=== PATIENT | female | born 1970 ===

== ENCOUNTER 2023-08-19 16:57 | Inpatient (IN) | payer OTHER ==
[~2023-08-19] VITALS: Ht 154.9 cm; Wt 133.5 kg
--- NOTE | 2023-08-19 20:00 | NUR ---
ADMISSION PT IS A DIRECT ADMIT FROM [facility] FOR ENT CONSULTATION & OBS FOR FACIAL/LIP ABCESS. PT ARRIVED VIA EMS TRANSPORT. PT IS AWAKE,A&O X4, SBA W/FWW FROM GURNEY TO BED, VSS, LUNG SOUNDS CLEAR, RA, DENIES SOB, REDNESS/SWELLING TO R.SIDE OF PT'S FACE, WARM TO TOUCH & PAINFUL.PT ORIENTED TO ROOM/CALL LIGHT, NO IGNITION SOURCES IDENTIFIED. IV ACCESS L.ARM, PATENT. NOTIFIED OF PT'S ARRIVAL, ORDERS PLACED, MD TO BEDSIDE TO SPEAK WITH PT SOON AVAILABLE, CALL LIGHT IN REACH, BD IN LOW POSITION, PT INSTRUCTED TO CALL FOR ASSISTANCE PRIOR TO GETTING OOB FOR SAFETY,
[2023-08-19 21:27] VITALS: BP 136/84
[2023-08-19 22:29] LABS: BASOPHILS ABSOLUTE AUTO 0.04 K/mm3 (0.00-0.23); BASOPHILS PERCENT AUTO 0 % (0-2); EOSINOPHILS ABSOLUTE AUTO 0.16 K/mm3 (0.00-0.68); EOSINOPHILS PERCENT AUTO 2 % (0-6); Hematocrit 41.3 % (33.0-51.0); Hemoglobin 13.6 g/dL (11.5-16.0); IMMATURE GRAN ABSOLUTE AUTO 0.04 K/mm3 (0.00-0.10); IMMATURE GRAN PERCENT AUTO 0 % (0-1); LYMPHOCYTES PERCENT AUTO 22 % (21-46); MONOCYTES PERCENT AUTO 8 % (4-13); Mean Corpuscular HGB 29.1 pg (26.0-34.0); Mean Corpuscular HGB Conc 32.9 g/dL (31.5-36.5); Mean Corpuscular Volume 88 fL (80-100); Mean Platelet Volume 9.8 fL (9.1-12.4); NEUTROPHILS ABSOLUTE AUTO 7.06 K/mm3 (1.96-9.15); NEUTROPHILS PERCENT AUTO 68 % (41-73); Platelet Count 273 K/mm3 (150-400); RDW Coefficient Variation 14.4 % (11.7-14.2); RDW Standard Deviation 46.1 fL (35.1-46.3); Red Blood Cell Count 4.68 M/mm3 (3.80-5.20)
[2023-08-19 22:47] LABS: Albumin, Blood 2.9 g/dL (3.4-5.0); Albumin/Globulin Ratio 0.6 (0.8-1.8); Bilirubin, Total 0.5 mg/dL (0.1-1.0); Bun/Creatinine Ratio 22.3 (12.0-20.0); Calcium, Blood 8.4 mg/dL (8.5-10.1); Creatinine, Blood 0.63 mg/dL (0.40-1.00); Globulin, Blood 4.6 g/dL (2.2-4.0); Magnesium, Blood 1.9 mg/dL (1.6-2.4); Potassium, Blood 3.5 mmol/L (3.5-5.5); Total Protein, Blood 7.5 g/dL (6.4-8.2)
[2023-08-20] MEDS ORDERED: Amitriptyline H10 MG PO (04:08)
[2023-08-20] MEDS ORDERED: BACL20 PO (04:10)
[2023-08-20] MEDS ORDERED: ELIQUIS5 M2 PO (04:11)
[2023-08-20] MEDS ORDERED: FERSU300 PO (04:11)
[2023-08-20] MEDS ORDERED: Flonase 0.05% N16 GM (04:12)
[2023-08-20] MEDS ORDERED: FURO20 PO (04:13)
[2023-08-20] MEDS ORDERED: GABA300 PO (04:13)
[2023-08-20] MEDS ORDERED: Norco 7.5-3251 EACH PO (04:15)
[2023-08-20] MEDS ORDERED: LACT10SY PO (04:16)
[2023-08-20] MEDS ORDERED: OMEP20ER PO (04:17)
[2023-08-20] MEDS ORDERED: LIDO700A20 TOP (04:17)
[2023-08-20] MEDS ORDERED: BUPR150ER PO (04:18)
[2023-08-20] MEDS ORDERED: CLON1 PO (04:19)
[2023-08-20] MEDS ORDERED: METF500 PO (04:20)
[2023-08-20] MEDS ORDERED: OXYB5 PO (04:20)
[2023-08-20] MEDS ORDERED: AMOCLA875 PO (04:27)
[2023-08-20 04:35] VITALS: BP 123/76
[2023-08-20 04:49] LABS: BASOPHILS ABSOLUTE AUTO 0.03 K/mm3 (0.00-0.23); BASOPHILS PERCENT AUTO 0 % (0-2); EOSINOPHILS ABSOLUTE AUTO 0.19 K/mm3 (0.00-0.68); EOSINOPHILS PERCENT AUTO 2 % (0-6); Hematocrit 40.9 % (33.0-51.0); Hemoglobin 13.7 g/dL (11.5-16.0); IMMATURE GRAN ABSOLUTE AUTO 0.03 K/mm3 (0.00-0.10); IMMATURE GRAN PERCENT AUTO 0 % (0-1); LYMPHOCYTES ABSOLUTE AUTO 2.47 K/mm3 (0.84-5.20); LYMPHOCYTES PERCENT AUTO 32 % (21-46); MONOCYTES PERCENT AUTO 8 % (4-13); Mean Corpuscular HGB 29.5 pg (26.0-34.0); Mean Corpuscular HGB Conc 33.5 g/dL (31.5-36.5); Mean Corpuscular Volume 88 fL (80-100); Mean Platelet Volume 9.9 fL (9.1-12.4); NEUTROPHILS PERCENT AUTO 58 % (41-73); Platelet Count 248 K/mm3 (150-400); RDW Coefficient Variation 14.5 % (11.7-14.2); RDW Standard Deviation 46.5 fL (35.1-46.3); Red Blood Cell Count 4.64 M/mm3 (3.80-5.20); White Blood Cell Count 7.82 K/mm3 (4.00-11.30)
[2023-08-20 05:04] LABS: Prothrombin Time Results 10.5 Sec (9.7-11.5)
[2023-08-20 05:08] LABS: Magnesium, Blood 1.8 mg/dL (1.6-2.4)
[2023-08-20 05:09] LABS: Albumin, Blood 2.7 g/dL (3.4-5.0); Albumin/Globulin Ratio 0.6 (0.8-1.8); Bilirubin, Total 0.5 mg/dL (0.1-1.0); Calcium, Blood 8.2 mg/dL (8.5-10.1); Creatinine, Blood 0.6 mg/dL (0.40-1.00); Globulin, Blood 4.6 g/dL (2.2-4.0); Potassium, Blood 3.3 mmol/L (3.5-5.5); Total Protein, Blood 7.3 g/dL (6.4-8.2)
--- NOTE | 2023-08-20 06:45 | NUR ---
SHIFT SUMMARY NO CHANGES SINCE ADMISSION, PAIN MEDICATED X1, ABX/NS ADMINISTERED PER EMAR, NPO SINCE MIDNIGHT, VSS, ON RA, SBA W/FWW, ICE PACK GIVEN FOR FACIAL SWELLING, ENT CONSULT WAS CALLED, REPORT GIVEN TO BULL RN, PT RESTING QUIETLY THIS AM, CALL LIGHT IN REACH
[2023-08-20 07:07] VITALS: BP 123/79
--- NOTE | 2023-08-20 14:27 | NUR ---
DR. GAR ATTEMPTED BEDSIDE DRAINAGE OF ABCESS. PT TOLERATED WELL PAINFUL AT TIMES BUT MEDICATED WITH FENTANYL PER DR. GAR. PT CURRENTLY RESTING IN BED REPORTS TOLERABLE AT THIS TIME. SMALL INCISION NEAR R NARE AND UNDER UPPER LIP INSIDE MOUTH. PRESSURE APPLIED, BLEEDING STOPPED AT THIS TIME. TRIPLE ANTIBIOTIC APPLIED TO OUTER INCISION PER DR. GAR. PT GIVEN LIDOCAINE PRIOR TO PROCEDURE, CURRENTLY RIGHT SIDE STILL NUMB. PT DENIES NEEDS AT THIS TIME. CALL LIGHT IN REACH.
[2023-08-20 14:52] VITALS: BP 157/84
--- NOTE | 2023-08-20 17:59 | NUR ---
SHIFT SUMMARY NO CHANGES SINCE PREVIOUS NOTE. PT REPORTS FEELING BETTER OVERALL. SHE WAS ABLE TO BLOW HER NOSE AND FELT LIKE SHE CLEARED HER NASAL PASSAGE. AMBULATING WELL IN ROOM WITH SBA. PLAN IS TO CONTINUE IV ABX FOR THE NEXT FEW DAYS AND MONITOR S/S OF INFECTION AROUND FACE. PT TOLERATING DIET WELL.
[2023-08-20 19:47] VITALS: BP 142/89
[2023-08-20] MEDS ORDERED: DULO60 PO (22:06)
[2023-08-20] MEDS ORDERED: Celexa20 MG PO (22:10)
[2023-08-21 04:42] VITALS: BP 130/84
[2023-08-21 04:51] LABS: BASOPHILS ABSOLUTE AUTO 0.03 K/mm3 (0.00-0.23); BASOPHILS PERCENT AUTO 1 % (0-2); EOSINOPHILS PERCENT AUTO 4 % (0-6); Hematocrit 42.5 % (33.0-51.0); Hemoglobin 13.7 g/dL (11.5-16.0); IMMATURE GRAN ABSOLUTE AUTO 0.04 K/mm3 (0.00-0.10); IMMATURE GRAN PERCENT AUTO 1 % (0-1); LYMPHOCYTES ABSOLUTE AUTO 2.07 K/mm3 (0.84-5.20); LYMPHOCYTES PERCENT AUTO 39 % (21-46); MONOCYTES PERCENT AUTO 10 % (4-13); Mean Corpuscular HGB 28.8 pg (26.0-34.0); Mean Corpuscular HGB Conc 32.2 g/dL (31.5-36.5); Mean Corpuscular Volume 89 fL (80-100); Mean Platelet Volume 9.7 fL (9.1-12.4); NEUTROPHILS ABSOLUTE AUTO 2.45 K/mm3 (1.96-9.15); NEUTROPHILS PERCENT AUTO 46 % (41-73); Platelet Count 245 K/mm3 (150-400); RDW Coefficient Variation 14.1 % (11.7-14.2); RDW Standard Deviation 46.5 fL (35.1-46.3); Red Blood Cell Count 4.76 M/mm3 (3.80-5.20); White Blood Cell Count 5.29 K/mm3 (4.00-11.30)
[2023-08-21 05:20] LABS: Bun/Creatinine Ratio 32.4 (12.0-20.0); Calcium, Blood 8.5 mg/dL (8.5-10.1); Creatinine, Blood 0.74 mg/dL (0.40-1.00); Potassium, Blood 3.5 mmol/L (3.5-5.5)
[2023-08-21 07:11] VITALS: BP 149/85
[2023-08-21 10:46] LABS: Vancomycin, Trough 25.4 ug/mL (5.0-10.0)
[2023-08-21 14:42] VITALS: BP 136/82
--- NOTE | 2023-08-21 17:16 | NUR ---
SHIFT SUMMARY PAIN MANAGED WITH TYLENOL AND TORADOL THIS SHIFT. PT HAS BEEN INDEPENDENT IN HER ROOM WITH HER WALKER. PT TOLERATING PO. SHE IS GETTING ROUTINE IV ABX.
--- NOTE | 2023-08-21 18:45 | NUR ---
DR. PINON NOTIFIED THAT PT HAD HX OF PE IN 2020. ELIQUIS RESTARTED PER DR. PINON.
[2023-08-21 19:29] VITALS: BP 107/85
--- NOTE | 2023-08-21 20:02 | NUR ---
BEDSIDE REPORT GIVEN. PT ALERT, ORIENTED AN PARTICIPATED WITH REPORT. DISCUSSED INCREASED SWELLING TO RIGHT NOSTRIL AND UPPER LIP AREA WITH MEKA PATEL RN. REDNESS TO CHEEK APPEARS TO BE RECEDING. DR. PINON NOTIFIED OF CHANGES TO SWELLING AND REDNESS.
[2023-08-22 03:20] VITALS: BP 134/80
[2023-08-22 07:20] VITALS: BP 138/99
--- NOTE | 2023-08-22 07:33 | NUR ---
SUMMARY A&O X4, VSS, ON RA, PRODUCTIVE COUGH, NO ACUTE CHANGES NOTED, POWERGLIDE PLACED TO FRANSICO BY JESU DE LA TORRE, PAIN MANAGED PER EMAR. REPORT GIVEN TO PAWEL DE LA TORRE, RESTING QUIETLY, CALL LIGHT IN REACH
[2023-08-22 14:58] VITALS: BP 129/68
[2023-08-22 17:38] LABS: Vancomycin, Trough 18.1 ug/mL (5.0-10.0)
--- NOTE | 2023-08-22 18:17 | NUR ---
SHIFT SUMMARY PT HAS HAD A GOOD SHIFT. REPORTS FEELING BETTER & WAS VERY HAPPY TO SEE DR GAR THIS AFTERNOON. IS FEELING COMFORTABLE w/ THE IDEA OF GOING HOME TOMORROW. DIDN'T TAKE ANY PRN MEDS THIS SHIFT.
[2023-08-22 19:13] VITALS: BP 128/67
[2023-08-23 02:35] VITALS: BP 125/75
--- NOTE | 2023-08-23 05:21 | NUR ---
SHIFT SUMMARY PT HAS RESTED T/O THE NIGHT, PT STILL REPORTING SOME TIGHTNESS AND PAIN ON RIGHT SIDE OF FACE BUT REPORTS THAT IT HAS IMPROVED. MEDICATED FOR PAIN WITH TYLENOL WITH AFFECT. VITALS ARE STABLE. PT HAS BEEN INDEPENDENT IN THE ROOM. APPETITE IS GOOD. PLAN OF CARE REMAINS UNCHANGED.
[2023-08-23 07:21] VITALS: BP 159/89
[2023-08-23] MEDS ORDERED: MUPIROCIN1 G1 TOP (11:56)
[2023-08-23] MEDS ORDERED: SULTRIDS PO (11:56)
[2023-08-23 14:47] VITALS: BP 137/91
--- NOTE | 2023-08-23 16:43 | NUR ---
DISCHARGE ARRANGED TRANSPORTATION ARRIVED EARLY. PT EXCITED TO GO HOME. MEDS FAXED TO PREFERRED PHARMACY THIS AM. UNDERSTANDS IMPORTANCE OF TAKING THEM & F/U. ESCORTED OUT VIA WC w/ BELONGINGS.
== END 2023-08-23 16:40 | disposition home or self-care (01) | DRG 158 ==
LOC: MEDS 16:57 → SURS 20:10
PROVIDERS: Family Medicine; ADMIT Student in an Organized Health Care Education/Training Program
PROC: 0H91XZZ Drainage of Face Skin, External Approach (ICD-10-PCS; principal; 2023-08-20)
DX: K13.0 Diseases of lips (principal); L03.211 Cellulitis of face; E11.9 Type 2 diabetes mellitus without complications; I10 Essential (primary) hypertension; E66.01 Morbid (severe) obesity due to excess calories; E87.6 Hypokalemia; B95.62 Methicillin resistant Staphylococcus aureus infection as the cause of diseases classified elsewhere; F17.290 Nicotine dependence, other tobacco product, uncomplicated; Z86.711 Personal history of pulmonary embolism; Z79.01 Long term (current) use of anticoagulants; Z79.84 Long term (current) use of oral hypoglycemic drugs
CPT/HCPCS: 36415; 80048; 80053; 80202; 82947; 83605; 83735; 85025; 85610; A9270; C1751; J0696; J1885; J2405; J3010; J3370; J7030; J7050